=== PATIENT | male | born 1995 | race Caucasian/White ===

== ENCOUNTER 2018-11-13 03:43 | Inpatient (IN) | payer SELFPAY ==
[2018-11-13 03:57] LABS: Actual Bicarbonate (HCO3a) 12.4 mEq/L (22-28); Analyzer IN Cardio ER; Base Excess (BEa) -24.7 mEq/L (-2.0 to +3.0); Calcium, Ionized 1.14 mmol/L (1.12-1.30); Carboxyhemoglobin (COHb) 3.1 gm% (0.0-3.0); Hemoglobin (Hb) 13.4 g/dL (14.0-18.0); Potassium - ABG Lab 3.26 mmol/L (3.70-5.30)
[2018-11-13 04:02] LABS: CO2 Tension 96.3 mmHg (35.0-45.0); pH, Arterial 6.73 (7.35-7.45)
[2018-11-13] MEDS ORDERED: Norepinephrine 4 MG/4 ML VIAL ONE (04:02)
[2018-11-13 04:03] LABS: ALV-art Gradient 385.625 (0-20); Puncture Site RRA
[2018-11-13 04:15] LABS: Hemoglobin 13.1 g/dL (14.0-18.0); Mean Corpuscular HGB CONC 32.8 g/dL (32.0-36.0); Mean Corpuscular Hemoglobin 31.4 pg (27.0-31.0); Mean Corpuscular Volume 95.5 fL (78.0-98.0); Platelet Count 240 thou/uL (130-400); Red Blood Cell (RBC) Count 4.19 mill/uL (4.70-6.10); White Blood Cell (WBC) Count 9.8 thou/uL (4.8-10.8)
[2018-11-13 04:19] LABS: INR-International Normal Ratio 1.4; PTT 37.8 SEC (22.9-36.1); Prothrombin Time 17.4 SEC (12.0-14.7)
[2018-11-13 04:30] LABS: Eosinophils 6 % (0-10); Lymphocytes 81 % (21-51); MDiff Complete? YES; Monocytes 10 % (0-10); Neutrophil 3 % (42-75); Nucleated RBC 1 % (0)
[2018-11-13 04:33] LABS: ALT (SGPT) 390 U/L (8-55); AST (SGOT) 281 U/L (5-34); Alkaline Phosphatase 74 U/L (40-150); Anion Gap 30 mmol/L (10-20); BUN (Urea Nitrogen) 10 mg/dL (8.9-20.6); Bilirubin, Total 0.2 mg/dL (0.2-1.2); CK (CPK) 102 U/L (30-200); Calc. Creatinine Clearance 0 mL/min (70-130); Calcium 8.5 mg/dL (7.8-10.44); Chloride 107 mmol/L (98-107); Estimated GFR-MDRD 73; Globulin 2.1 g/dL (2.4-3.5); Glucose 276 mg/dL (70-105); Potassium 3.7 mmol/L (3.5-5.1); Protein, Total 5.1 g/dL (6.0-8.3); Sodium 142 mmol/L (136-145)
[2018-11-13 04:43] LABS: Carbon Dioxide 9 mmol/L (22-29)
[2018-11-13 04:54] LABS: Analyzer IN Cardio ER; Base Excess (BEa) -11.2 mEq/L (-2.0 to +3.0); CO2 Tension 46.2 mmHg (35.0-45.0); Carboxyhemoglobin (COHb) 1.8 gm% (0.0-3.0); Hemoglobin (Hb) 14.9 g/dL (14.0-18.0); O2 Tension (PaO2) 161.6 mmHg (80.0-100.0); Potassium - ABG Lab 4.51 mmol/L (3.70-5.30)
[2018-11-13 05:00] LABS: Puncture Site ALINE; pH, Arterial 7.18 (7.35-7.45)
[2018-11-13] MEDS ORDERED: Fentanyl 100 MCG/2 ML VIAL ONE (05:11)
[2018-11-13] MEDS ORDERED: Dextrose 5% in Water 1,000 ML IV PRN (05:35)
[2018-11-13] MEDS ORDERED: Ondansetron ODT 4 MG TAB PO PRN (05:35)
[2018-11-13] MEDS ORDERED: Ondansetron PF 4 MG/2 ML Vial IVP PRN (05:35)
[2018-11-13] MEDS ORDERED: Dextrose 50% Abboject 50 ML SYRINGE SLOW IVP PRN (05:35)
[2018-11-13] MEDS ORDERED: Ventilator Sedation Protocol 1 EACH FS SCH (05:35)
[2018-11-13] MEDS ORDERED: hydrALAZINE 20 MG/ML VIAL SLOW IVP PRN (05:35)
[2018-11-13] MEDS ORDERED: fentaNYL Citrate/PF 2,000 MCG in Sodium Chloride 0.9% 60 ML IV SCH (05:37)
[2018-11-13] MEDS ORDERED: Fentanyl BOLUS 250 ML IVPB PRN (05:37)
[2018-11-13] MEDS ORDERED: Lorazepam 2 MG/ML VIAL SLOW IVP PRN (05:37)
[2018-11-13] MEDS ORDERED: Propofol BOLUS 1,000 MG/100 ML VIAL IV PRN (05:37)
[2018-11-13] MEDS ORDERED: DISCONTINUE PREVIOUS NARCOTIC PAIN MEDICATIONS AND BENZODIAZEPINES FS SCH (05:37)
[2018-11-13] MEDS ORDERED: Morphine 2 MG/ML SYRINGE SLOW IVP PRN (05:37)
[2018-11-13] MEDS ORDERED: Propofol 1,000 MG/100 ML VIAL IV PRN (05:37)
[2018-11-13] MEDS ORDERED: Albuterol Sulfate 2.5 mg/0.5 ml Neb ONE (05:41)
[2018-11-13] MEDS ORDERED: Furosemide 40 MG/4 ML VIAL ONE (05:42)
[2018-11-13] MEDS: Sodium Chloride 0.9% 1,000 ML IV SCH ×2 (06:23→13:09)
[2018-11-13 06:31] LABS: Actual Bicarbonate (HCO3a) 19.2 mEq/L (22-28); CO2 Tension 59.7 mmHg (35.0-45.0); Calcium, Ionized 1.02 mmol/L (1.12-1.30); Carboxyhemoglobin (COHb) 0.9 gm% (0.0-3.0); Hemoglobin (Hb) 17.3 g/dL (14.0-18.0); Potassium - ABG Lab 3.95 mmol/L (3.70-5.30)
[2018-11-13 06:44] LABS: O2 Tension (PaO2) 51.9 mmHg (80.0-100.0); pH, Arterial 7.13 (7.35-7.45)
[2018-11-13 06:45] LABS: ALV-art Gradient 586.475 (0-20); Puncture Site LINE
--- NOTE | 2018-11-13 07:53 | CT ---
PRELIMINARY REPORT/[facility]/EMERGENCY AFTER HOURS PROCEDURE: EXAM: CT Head Without Contrast EXAM DATE/TIME: 11/13/2018 4:16 AM CLINICAL HISTORY: 23 years old, male; Injury or trauma; Initial encounter; Asphyxiation (suffocation); Consciousness no t specified; Patient HX: 23 y/o m presents to ED via EMS transport as cpr in progress, cardiac arrest. Per EMS, PT was found hanging by his neck by pd at 0300; Last seen awake at 0230. Pd called medics and began cpr on finding PT. PT in asystole en route; Cpr continued. 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 COMPARISON: No relevant prior studies available. FINDINGS: Limitations: Hardening artifacts. Brain: See Soft Tissues Finding. Ventricles: Normal. No ventriculomegaly. Bones/joints: Unremarkable. No acute fracture. Sinuses: There is mild mucosal thickening of the ethmoid sinuses. There are small air-fluid levels of left sphenoid, left maxillary sinuses. Mastoid air cells: Visualized mastoid air cells are well aerated. No mastoid effusion. Soft tissues: There is asymmetric decrease in size of the left temporal horn. There is subtle density of the left temporal lobe, image 10 of series 3. Cannot exclude subtle subarachnoid hemorrhage. IMPRESSION: 1. Asymmetric decrease size of the left temporal horn with subtle increased density and and could be related to volume averaging. Cannot exclude subtle subarachnoid hemorrhage of the left temporal lobe. followup. 2. Paranasal sinus disease. Thank you for allowing us to participate in the care of your patient. Dictated and Authenticated by: Sanjana Story DO 11/13/2018 4:49 AM Central Time ([place]) FINAL REPORT EMERGENCY AFTER HOURS CT HEAD: HISTORY: Asphyxiation. CPR in progress by EMS. Cardiac arrest. Patient found hanging by neck. COMPARISON: None. FINDINGS/IMPRESSION: 1. Beam-hardening artifact on multiple images limiting evaluation. No definitive intraparenchymal or extra-axial hemorrhage is identified, but there is mild asymmetric focus of increased density in the left temporal lobe felt to most likely be artifactual. Subarachnoid hemorrhage while possibility is thought less likely. Follow-up evaluation is suggested. 2. Sinus disease. This may be related to the intubation as endotracheal tube is imaged on the scrap piler i mage. Findings are agreement with the preliminary report by Tommie. CODE QA. Transcribed Date/Time: 11/13/2018 8:02 AM
--- NOTE | 2018-11-13 07:55 | RAD ---
XR Chest 1 View Portable History: Emergency exam Comparison: None. Findings: Endotracheal tube tip sits above the level of the clavicles. Defibrillator pads project ove r the right hemithorax and left hemithorax. Mild scattered atelectasis. No pneumothorax. No effusion. No enteric tube is appreciated. Impression: Scattered aspiration and atelectasis.
--- NOTE | 2018-11-13 08:00 | CT ---
PRELIMINARY REPORT/[facility]/EMERGENCY AFTER HOURS PROCEDURE: EXAM: CT Angiography Neck With Contrast EXAM DATE/TIME: 11/13/2018 4:16 AM CLINICAL HISTORY: 23 years old, male; Injury or trauma; Initial encounter; Asphyxiation; Patient HX: 23 y/o m presents to ED via EMS transport as cpr in progress, cardiac arrest. Per EMS, PT was found hanging by his neck by pd at 0300; Last seen awake at 0230. Pd called medics and began cpr on finding PT. PT in asystole en route; Cpr continued. PT given multiple rounds of epi en route, last 2 minutes well logging captain TECHNIQUE: Imaging protocol: Axial computed tomographic angiography images of the neck with intravenous contrast using CT angiography protocol. Coronal and sagittal reformatted images were created and reviewed. 3D rendering: MIP reconstructed images were created and reviewed. COMPARISON: No relevant prior studies available. FINDINGS: VASCULATURE: Right common carotid artery: Unremarkable. No stenosis. No dissection or occlusion. Right internal carotid artery: Unremarkable extracranial segment. No stenosis. No dissection or occlusion. Right external carotid artery: Unremarkable. No occlusion or stenosis of the origin. Right vertebral artery: Unremarkable. No stenosis. No dissection or occlusion. Left common carotid artery: Unremarkable. No stenosis. No dissection or occlusion. Left internal carotid artery: Unremarkable extracranial segment. No stenosis. No dissection or occlusion. Left external carotid artery: Unremarkable. No occlusion or stenosis of the origin. Left vertebral artery: Unremarkable. No stenosis. No dissection or occlusion. NECK: Bones/joints: No acute fracture. Soft tissues: Normal. No significant soft tissue swelling. Lungs: There are airspace consolidations of bilateral upper lobes posteriorly. There are also patchy opacities at apices. IMPRESSION: No hemodynamically significant stenosis or occlusion. COMMENT: Reference per NASCET criteria for degree of stenosis: Mild: less than 50% stenosis. Moderate: 50- 69% stenosis. Severe: 70-94% stenosis. Near occlusion: 95-99% stenosis. Thank you for allowing us to participate in the care of your patient. Dictated and Authenticated by: Sanjana Story DO 11/13/2018 5:02 AM Central Time ([place]) FINAL REPORT EMERGENCY AFTER HOURS CT ANGIOGRAM NECK WITH IV CONTRAST AND 3D RECONSTRUCTIONS: HISTORY: Asphyxiation.. CPR in progress by EMS. Cardiac arrest. Patient found hanging by neck by the police department. IMPRESSION: 1. Patent bilateral carotid arteries as well as patent bilateral vertebral arteries. No focal stenosi s or dissection is visualized. 2. Endotracheal tube noted in place with tip at the T1-2 level and well above the level of the palomo . 3. Nasogastric tube noted in place, the nasogastric tube is coiled within the patient's mouth. 4. Fluid in the posterior nasopharynx with air-fluid level in the left sphenoid sinus. These findings may be related to the intubation. 5. Parenchymal lung changes at the medial aspect visualized upper lung zones. Findings may be related to aspiration pneumonitis, pneumonia, and/or secondary to volume loss. 6. Findings are in agreement with the preliminary report by Tommie. CODE QA. Transcribed Date/Time: 11/13/2018 8:07 AM
--- NOTE | 2018-11-13 08:09 | CT ---
PRELIMINARY REPORT/[facility]/EMERGENCY AFTER HOURS PROCEDURE: EXAM: CT Cervical Spine Without Contrast EXAM DATE/TIME: 11/13/2018 4:16 AM CLINICAL HISTORY: 23 years old, male; Injury or trauma; Initial encounter; Asphyxiation; Patient HX: 23 y/o m presents to ED via EMS transport as cpr in progress, cardiac arrest. Per EMS, PT was found hanging by his neck by pd at 0300; Last seen awake at 0230. Pd called medics and began cpr on finding PT. PT in asystole en route; Cpr continued. 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 Coronal and sagi ttal reformatted images were created and reviewed. COMPARISON: No relevant prior studies available. FINDINGS: Vertebrae: No acute fracture. Normal alignment. Discs/Spinal canal/Neural foramina: No spinal stenosis. No neural foraminal narrowing. Soft tissues: Unremarkable. Lungs: Lung apices are normal. IMPRESSION: No acute findings. Thank you for allowing us to participate in the care of your patient. Dictated and Authenticated by: Sanjana Story DO 11/13/2018 4:53 AM Central Time ([place]) FINAL REPORT EMERGENCY AFTER HOURS CT CERVICAL SPINE WITHOUT CONTRAST: FINDINGS/IMPRESSION: I agree with the findings and impression given in the preliminary report per [facility] physician. No evide nce of acute osseous abnormality of the cervical spine. POS: CET
--- NOTE | 2018-11-13 08:18 | RAD ---
SINGLE VIEW CHEST: Date: 11/13/18 COMPARISON: 11/13/18 at 0345 hours. HISTORY: Cardiac arrest. Trauma. FINDINGS: Single view of the chest shows a normal sized cardiomediastinal silhouette. There are bilateral perih ilar opacities which extend into the upper lobes. A NG tube is seen with its tip in the stomach. An e ndotracheal tube is seen with its tip at the upper border of the clavicles. No pleural effusion is se en. IMPRESSION: Bilateral perihilar opacities may represent pulmonary edema. POS: CET
[2018-11-13 08:20] LABS: Lactic Acid 5.2 mmol/L (0.5-2.2)
[2018-11-13] MEDS ORDERED: Famotidine/PF 20 mg/2ml Vial SLOW IVP SCH (09:00)
[2018-11-13] MEDS ORDERED: Albumin 5% 250 ML ONE (09:07)
[2018-11-13] MEDS ORDERED: Sodium Bicarb 50 MEQ/50 ML VIAL ONE ×2 (09:23→17:20)
--- NOTE | 2018-11-13 09:28 | HP ---
REQUESTING PHYSICIAN: Dr. Gamez. ATTENDING SURGEON: Dr. Delgadillo. HISTORY OF PRESENT ILLNESS: The patient is a 23-year-old man who was brought to the emergency department after he was found hanging, totally unresponsive, and had bystander CPR initiated. The patient was thought to be possibly hanging as long as 30 minutes prior to arrival of first press operator. The patient was brought to the emergency department in full cardiac arrest with CPR being performed. He was intubated after several rounds of cardiac medications and CPR, the patient had a return of circulation. The patient was met in the emergency department by Dr. Delgadillo in addition to the resuscitation crew. The patient was a GCS of 3 during his entire resuscitation in the emergency department. At one point, the patient required Levophed drip to maintain his pressure. He also just prior to leaving for the critical care unit, desatted into the 80s. The patient's ET tube was suctioned. He also had albuterol nebulizer treatment, and repeat chest x-ray showed some pulmonary congestion, possibly related to flash pulmonary edema; at which time, he was given 40 mg of Lasix IV. The patient at no point had received any paralytics and only received one dose of 100 mcg of fentanyl. The patient was a Otf Pizano during his initial arrival at the emergency department. ALLERGIES: UNKNOWN. CURRENT MEDICATIONS: Unknown. PAST MEDICAL HISTORY: Unknown. PAST SURGICAL HISTORY: Unknown. SOCIAL HISTORY: Unknown. REVIEW OF SYSTEMS: 10-point review of systems unknown. PHYSICAL EXAMINATION: VITAL SIGNS: Initial vitals; blood pressure was 62/36, heart rate was approximately 120 with CPR. Respirations were bag valve mask through the ET tube, a rate of 20, oxygen saturation was 96%. GENERAL: The patient initially had a [place] Coma Scale of 3. This would not change throughout the resuscitation. After return of circulation, the patient remained [place] Coma Scale of 3. HEENT: Head is normocephalic and atraumatic. Eyes, pupils are fixed and dilated at approximately 6 mm. Ears are atraumatic without discharge. Nose was atraumatic without discharge. Oropharynx, an ET tube was in place. Orogastric tube had been placed in the emergency department. NECK: There were no step-offs to the midline posterior. Anterior neck did show a ligature leda across his anterior neck. The trachea is midline. CHEST: Scattered rhonchi bilaterally. HEART: Tachycardic with a regular rhythm. ABDOMEN: Soft. Slightly distended with absent bowel sounds. PELVIS: Stable. EXTREMITIES: While on pressors, he showed a cap refill of 3 to 4 seconds and 1+ to 2+ pulses. BACK: Atraumatic. LABORATORY FINDINGS: White blood cell count 9.8, hemoglobin 13.1, hematocrit 40.0, and platelets 240. Sodium 142, potassium 3.7, chloride 107, CO2 of 9, BUN 10, creatinine 1.22, and glucose 276. Initial lactic acid was 13.7, repeat was 5.2. Total bilirubin 0.2, AST 281, ALT 390, alkaline phosphatase 74, CK 102, troponin 0.021. Initial blood gas; the pH of 6.73, pCO2 of 96, PO2 of 207, base excess was -24.7. RADIOGRAPHIC FINDINGS: CT of the head without contrast shows asymmetric decreased size of the left temporal horn with subtle increased density, and this could be related to volume averaging. Cannot exclude subtle subarachnoid hemorrhage of the left temporal lobe. CT of the C-spine without contrast shows no acute findings. CT of the neck with IV contrast shows no hemodynamically significant stenosis or occlusion. ASSESSMENT: 1. Status post hanging. 2. Status post CPR with return of circulation. 3. Acute respiratory failure, secondary to above. PLAN: Plan will be to admit the patient to the critical care unit. We will continue resuscitative efforts to include pressors as needed. At the time of this dictation, the patient had been off his vasopressors for approximately an hour, but then required them once again. The patient's oxygen saturation has been also varying, but at the time of this dictation, had returned into the 90s. The outcome for this patient does look grim. We will continue supportive care and await family arrival. The evaluation and examination of resuscitation were done in the emergency department with Dr. Delgadillo. The case was also discussed with Dr. Oates prior to this dictation. Job ID: [id number]
[2018-11-13] MEDS ORDERED: Dextrose 50% Abboject 50 ML SYRINGE SLOW IVP SCH (09:30)
[2018-11-13] MEDS ORDERED: methylPREDNISolone Sod Succ 2 GM in Sodium Chloride 0.9% 100 ML IVPB SCH (09:30)
[2018-11-13] MEDS ORDERED: Insulin Regular 300 UNITS/3 ML VIAL IVP SCH (09:30)
[2018-11-13] MEDS ORDERED: Sodium Chloride 0.9% (PF) 10 ML VIAL FS PRN (09:54)
[2018-11-13] MEDS ORDERED: Pantoprazole 40 MG VIAL IVP SCH (10:00)
--- NOTE | 2018-11-13 10:04 | RAD ---
XR Chest 1 View Portable History: Central line placement Comparison: Radiograph same day Findings: Small right apical pneumothorax. Central venous catheter tip at the mid SVC in good positio n. The right pneumothorax is have a basilar component. Parenchymal opacities are similar. Impression: New small-moderate right apical and basilar pneumothorax and likely a component of pneumo mediastinum.
[2018-11-13] MEDS: Levothyroxine Sodium 400 MCG in Sodium Chloride 0.9% 100 ML IVPB SCH (10:19)
[2018-11-13 12:22] LABS: Actual Bicarbonate (HCO3a) 17.7 mEq/L (22-28); Base Excess (BEa) -9.4 mEq/L (-2.0 to +3.0); CO2 Tension 42.9 mmHg (35.0-45.0); Calcium, Ionized 1.01 mmol/L (1.12-1.30); Carboxyhemoglobin (COHb) 0.9 gm% (0.0-3.0); Hemoglobin (Hb) 15.1 g/dL (14.0-18.0); O2 Tension (PaO2) 97.8 mmHg (80.0-100.0); Potassium - ABG Lab 3.25 mmol/L (3.70-5.30)
[2018-11-13 12:24] LABS: ALV-art Gradient 561.575 (0-20); Puncture Site LINE; pH, Arterial 7.23 (7.35-7.45)
[2018-11-13] MEDS ORDERED: Sodium Bicarb 50 MEQ/50 ML VIAL IVP SCH ×2 (12:30→17:30)
[2018-11-13] MEDS ORDERED: Calcium Chloride 1 GM/10 ML Abboject SYRINGE IVP SCH (12:30)
[2018-11-13] MEDS ORDERED: Lactated Ringer's 1,000 ML IV SCH (13:15)
[2018-11-13 13:44] LABS: Anion Gap 12 mmol/L (10-20); BUN (Urea Nitrogen) 23 mg/dL (8.9-20.6); Calc. Creatinine Clearance 52 mL/min (70-130); Calcium 9.7 mg/dL (7.8-10.44); Carbon Dioxide 27 mmol/L (22-29); Chloride 113 mmol/L (98-107); Estimated GFR-MDRD 33; Glucose 40 mg/dL (70-105); Magnesium 1.7 mg/dL (1.6-2.6); Phosphorus Less than 1.0 mg/dL (2.3-4.7); Potassium 3.5 mmol/L (3.5-5.1); Sodium 148 mmol/L (136-145)
[2018-11-13] MEDS ORDERED: Potassium Phosphate 30 MMOL, Magnesium Sulfate 4 GM in Sodium Chloride 0.9% 250 ML 250 ML IVPB SCH (14:00)
[2018-11-13] MEDS ORDERED: Magnesium Sulfate 4 GM in Sodium Chloride 0.9% 250 ML 250 ML IVPB SCH (14:00)
[2018-11-13] MEDS ORDERED: Potassium Phosphate 30 MMOL in Sodium Chloride 0.9% 500 ML IVPB SCH (14:00)
[2018-11-13] MEDS ORDERED: Lidocaine 1% (PF) 30 ML VIAL ONE (14:20)
[2018-11-13] MEDS ORDERED: ISOVUE-370 76%-LOCM 1 ML ONE (15:24)
[2018-11-13] MEDS: Norepinephrine 8 MG in Dextrose 5% in Water 242 ML IVPB PRN ×2 (15:56→21:17)
[2018-11-13 16:54] LABS: Actual Bicarbonate (HCO3a) 24.1 mEq/L (22-28); Carboxyhemoglobin (COHb) 0.6 gm% (0.0-3.0); Hemoglobin (Hb) 15.5 g/dL (14.0-18.0); O2 Tension (PaO2) 92.8 mmHg (80.0-100.0); Potassium - ABG Lab 3.52 mmol/L (3.70-5.30)
[2018-11-13 16:56] LABS: pH, Arterial 7.17 (7.35-7.45)
[2018-11-13 16:57] LABS: CO2 Tension 68.1 mmHg (35.0-45.0); Puncture Site ALINE
[2018-11-13 16:58] LABS: ALV-art Gradient 535.075 (0-20)
[2018-11-13] MEDS: Lactated Ringer's 1,000 ML IV SCH (17:28)
[2018-11-13 17:35] LABS: Actual Bicarbonate (HCO3a) 23.6 mEq/L (22-28); Base Excess (BEa) -2.6 mEq/L (-2.0 to +3.0); CO2 Tension 46.2 mmHg (35.0-45.0); Calcium, Ionized 1.12 mmol/L (1.12-1.30); Potassium - ABG Lab 3.51 mmol/L (3.70-5.30); pH, Arterial 7.33 (7.35-7.45)
[2018-11-13 17:37] LABS: Carboxyhemoglobin (COHb) 0.9 gm% (0.0-3.0); Puncture Site ALINE
--- NOTE | 2018-11-13 18:15 | OP ---
DATE OF PROCEDURE: 11/13/2018 PREOPERATIVE DIAGNOSES: 1. Suicide attempt by hanging. 2. Acute posttraumatic respiratory failure. 3. Acute severe anoxic brain injury. 4. Acute metabolic and respiratory acidosis. POSTOPERATIVE DIAGNOSES: 1. Suicide attempt by hanging. 2. Acute posttraumatic respiratory failure. 3. Acute severe anoxic brain injury. 4. Acute metabolic and respiratory acidosis. PROCEDURE PERFORMED: Placement of triple-lumen left subclavian central venous catheter. INDICATIONS FOR PROCEDURE: A 23-year-old man, attempted suicide today by hanging. Apparently, the patient was cut down after over 25 minutes of hanging time. He was essentially in asystole for 30 minutes. Following a prolonged CPR, return of spontaneous circulation was achieved. The patient is admitted in the intensive care unit currently. He has no brainstem function. He has been hemodynamically unstable, requiring large volume fluid resuscitation and high dose of norepinephrine. Decision was made to place a central venous catheter for hemodynamic monitoring and to facilitate further therapeutics. DESCRIPTION OF PROCEDURE: The patient was placed in supine position. Left chest wall was sterilely prepped and draped in usual fashion. The skin below the left clavicle anesthetized with 1% lidocaine. Left subclavian vein was cannulated with an 18-gauge introducer needle, returning dark venous blood. Guidewire was passed through the needle and advanced into the left subclavian vein without resistance. Needle was withdrawn over the guidewire. A stab incision was made adjacent to the guidewire using 11 scalpel. Dilator was passed over the guidewire, dilating the subcutaneous tissues. Dilator was removed and a triple-lumen central venous catheter was advanced over the guidewire and placed in the left subclavian vein without resistance, stopping at the 18 cm leda. Guidewire was removed. Dark venous blood was aspirated from all three ports, which were individually flushed with saline. Catheter was secured to anterior chest wall using 3-0 silk suture at two points. Biopatch and sterile dressings were applied. Portable chest x-ray was obtained confirming proper placement of the central venous catheter, no pneumothorax present. Job ID: [id number]
--- NOTE | 2018-11-13 18:22 | PRG ---
DATE OF SERVICE: SUBJECTIVE: Mr. Gonzalez is a 23-year-old man who attempted suicide by hanging. The patient was cut down over 20 minutes of hanging time. He was in asystole for over 30 minutes. Following a prolonged CPR, spontaneous circulation was achieved. The patient was transferred to [facility] and evaluated by Trauma team. CT scan of the brain was obtained which reveals no acute intracranial hemorrhage. CT angiography of the neck revealed no vascular pathology. CT scan of the cervical spine revealed no fractures or dislocation. The patient has remained hemodynamically unstable. He has required ongoing fluid resuscitation. Currently, norepinephrine is at 20 mcg/minute. This is only achieving a mean arterial pressure in the mid 60s. Urinary output, however, has been adequate. OBJECTIVE: VITAL SIGNS: Include blood pressure 91/53, pulse 121, respiratory rate is 28, temperature is 103.1 degrees Fahrenheit, oxygen saturation 100% on FiO2 100%. HEENT: Both pupils are fixed and dilated at 5 mm bilaterally. The patient has no corneal reflex present. He has no cough or gag reflexes. HEART: Reveals regular rate with sinus tachycardia. No murmurs or gallops auscultated. LUNGS: Reveal bibasilar rhonchi. Breathing regular and nonlabored. ABDOMEN: Soft and nondistended. EXTREMITIES: Reveal 2+ radial and pedal pulses bilaterally. No ankle edema is present. [place] Coma Scale is 3. LABORATORY FINDINGS: Today includes CBC with 9800 white blood cells, hemoglobin and hematocrit 13.1 and 40.0 respectively, platelet count is 240,000. Metabolic profile; sodium is 142, potassium 3.7, chloride is 107, bicarb is 9, anion gap is 30, BUN is 10, creatinine is 1.22, glucose is 276. Lactic acid which was initially 13.7, is now down to 5.2. AST and ALT elevated at 281 and 390 respectively. Total bilirubin is normal at 0.2. Arterial blood gas: PH 7.13, pCO2 is 60, pO2 is 52, oxygen saturation 74%, base excess -11.0, hemoglobin is 17.3, hematocrit 51.0. Ionized calcium is 1.02. IMPRESSIONS: 1. Status post suicide by hanging. 2. Acute anoxic brain injury with brain in evolution. 3. Acute posttraumatic hypercapnic and hypoxemic respiratory failure. 4. Acute lactic acidosis. 5. Acute hypocalcemia. 6. Acute negative pressure bilateral pulmonary edema. PLAN: 1. Aggressive fluid resuscitation. 2. We will initiate T4 brain protocol. 3. Correct abnormal electrolytes. 4. We will continue with full mechanical ventilator support with high PEEP until hypoxemia is reversed. 5. Above findings and plan discussed with the patient's father once he arrived. 6. I have informed him that prognosis for any meaningful recovery is poor as the patient is approaching brain . Dad indicates understanding information given. We will wait for arrival of his mother. Total critical care time is 75 minutes. Job ID: [id number]
[2018-11-13] MEDS: Vasopressin 40 UNIT, Admixture Fee 1 EACH in Sodium Chloride 0.9% 100 ML IV SCH (21:07)
--- NOTE | 2018-11-14 00:30 | PRG ---
DATE OF SERVICE: 11/13/2018 SUBJECTIVE: The patient remains in the Critical Care Unit. He was admitted early this morning status post a hanging in which he sustained significant anoxic brain injury. He had an estimated 50 minutes of pulselessness return of pulse, the patient has had no sedation or paralytics, other than initially has made no efforts to breath spontaneously or have any reflexes. The patient's pupils remained fixed and dilated. This evening I met with both mother and father and discussed the prognosis and the severity of his injury, they understood this. They did want the patient to remain a full code overnight and once we do his nuclear medicine brain flow study in the morning, will make decisions after that. The Day Team has initiated the T4 brain protocol and the remainder of his supportive care continues. OBJECTIVE: VITAL SIGNS: The patient continues to be febrile, we are instituting cooling blanket, tachycardia between the 90s and 120s and blood pressures the mean arterial pressure with vasopressor support has remained above 60. GENERAL: The patient is resting in bed. He appears in no discomfort. He has on full ventilatory support during my lengthy stay with the patient. I did not notice any spontaneous respirations on the ventilator. His pupils remained fixed and dilated. His [place] Coma Scale remains 3T. LUNGS: Scant wheezing bilaterally. ABDOMEN: Bowel sounds are hypoactive. ASSESSMENT/PLAN: 1. Status post hanging. 2. Acute anoxic brain injury with brain in evolution. 3. Acute posttraumatic hypercapnia and hypoxemia, respiratory failure. 4. Acute lactic acidosis. 5. Acute hypocalcemia. 6. Acute negative pressure bilateral pulmonary edema. PLAN: Will be to continue full supportive measures and evaluate his brain flow study in the morning and then discuss with the family plans at that time. The dad informed us that the patient is a blood donor and we noted the STA has been notified, but has not made contact with the patient's family at this time. Again, the discussion was done with the parents who were both at bedside and they are both in agreement with this plan at this time. Job ID: [id number]
[2018-11-14 03:39] LABS: INR-International Normal Ratio 2.7; PTT 45.9 SEC (22.9-36.1); Prothrombin Time 28.5 SEC (12.0-14.7)
[2018-11-14 03:41] LABS: Hemoglobin 14.8 g/dL (14.0-18.0); Mean Corpuscular HGB CONC 33.6 g/dL (32.0-36.0); Mean Corpuscular Hemoglobin 30.9 pg (27.0-31.0); Mean Corpuscular Volume 91.8 fL (78.0-98.0); Mean Platelet Volume 10.4 fL (7.4-10.4); Platelet Count 61 thou/uL (130-400); RBC Distribution Width 13.8 % (11.5-14.5); White Blood Cell (WBC) Count 12.4 thou/uL (4.8-10.8)
[2018-11-14 03:49] LABS: Anion Gap 22 mmol/L (10-20); BUN (Urea Nitrogen) 39 mg/dL (8.9-20.6); Calc. Creatinine Clearance 36 mL/min (70-130); Calcium 8.3 mg/dL (7.8-10.44); Carbon Dioxide 18 mmol/L (22-29); Chloride 114 mmol/L (98-107); Estimated GFR-MDRD 22; Glucose 153 mg/dL (70-105); Potassium 3.2 mmol/L (3.5-5.1); Sodium 151 mmol/L (136-145)
[2018-11-14 04:00] LABS: Band 36 % (5-11); Lymphocytes 27 % (21-51); MDiff Complete? YES; Metamyelocyte 4 % (0-0); Monocytes 4 % (0-10); Neutrophil 29 % (42-75); Platelet Morphology Comment Appears Decreased
[2018-11-14] MEDS ORDERED: D5 1/2 NS w/20 mEq KCL 1,000 ML IV SCH (04:15)
[2018-11-14] MEDS: Lactated Ringer's 1,000 ML IV SCH (04:21)
[2018-11-14 04:49] LABS: ALT (SGPT) 3121 U/L (8-55); AST (SGOT) 3235 U/L (5-34); Albumin 3.9 g/dL (3.5-5.0); Alkaline Phosphatase 53 U/L (40-150); Bilirubin, Direct 1.4 mg/dL (0.1-0.3); Bilirubin, Total 1.9 mg/dL (0.2-1.2); Magnesium 2.6 mg/dL (1.6-2.6); Phosphorus 4.6 mg/dL (2.3-4.7); Protein, Total 5.5 g/dL (6.0-8.3)
[2018-11-14] MEDS ORDERED: Potassium Chloride 20 MEQ in Premix Bag 1 BAG IVPB SCH (05:00)
[2018-11-14 06:45] LABS: Actual Bicarbonate (HCO3a) 15.7 mEq/L (22-28); Base Excess (BEa) -10.8 mEq/L (-2.0 to +3.0); CO2 Tension 37.4 mmHg (35.0-45.0); Calcium, Ionized 1.04 mmol/L (1.12-1.30); Carboxyhemoglobin (COHb) 0.4 gm% (0.0-3.0); Hemoglobin (Hb) 14.6 g/dL (14.0-18.0); O2 Tension (PaO2) 235.5 mmHg (80.0-100.0)
[2018-11-14 06:48] LABS: Puncture Site LINE; pH, Arterial 7.24 (7.35-7.45)
[2018-11-14] MEDS ORDERED: Sodium Bicarb 50 MEQ/50 ML VIAL IVP SCH (07:00)
[2018-11-14] MEDS ORDERED: Pantoprazole 40 MG VIAL IVP SCH (09:00)
--- NOTE | 2018-11-14 09:04 | HP ---
ADDENDUM: CHIEF COMPLAINT: Hanging. HISTORY OF PRESENT ILLNESS: This is an addendum to the H and P dictated by Vincent Jernigan trauma PA. For full details, please see his report. In summary, the patient was brought to the emergency room after being found hanging and unresponsive by policemen around 3:00 a.m. His last known contact was about 2:30 a.m. After cutting him down, the police began bystander CPR, which was continued en route by the EMS crew. I was present on his arrival. He was intubated with equal breath sounds and dilated, nonresponsive pupils. He did have a palpable femoral and carotid pulses, though chest compressions were halted and his tracing showed wide-complex tachycardia. He was shocked and converted to narrow complex tachycardia with preservation of pulse. He was hemodynamically labile during his time in the emergency room and was extremely acidotic on his first ABG. He received several doses of epinephrine and bicarb and was on a Levophed drip to maintain his pressure. His O2 saturations were generally good, although he did desaturate at one point into the 80s and was found to have evidence of pulmonary edema on chest x-ray, which was treated with Lasix. His past medical, surgical, and family history were unknown on his arrival as he was reported to be from [place] and no family was present. He had no known allergies or medications. REVIEW OF SYSTEMS: Unobtainable. PHYSICAL EXAMINATION: Complete physical examination was performed. GENERAL: He had some abrasions to the anterior neck, mostly on the left, consistent with history of hanging. No petechiae or plethora. No step-offs or crepitus. Pupils were fixed and dilated. He did have some agonal respirations. No obvious external signs of trauma. HEART: Tachycardic, but regular. LUNGS: Sounds were equal bilaterally. ABDOMEN: Soft and nondistended. No instability or deformity of his pelvis, chest, or extremities. LABORATORY DATA: Initial labs showed a severe acidosis. The pH is 6.7, pCO2 of 96, and PO2 of 207, this did improve to pH 7.18, pCO2 of 46, PO2 of 161 during his ER stay. INR was 1.4 and PTT was 37. White count 9.8, hematocrit 40, and platelets 240. Electrolytes with severe acidosis. Elevation of AST and ALT, likely due to shock liver. Lactate was very elevated at 13.7, initially, but troponin was normal. IMAGING STUDIES: CT of the head was fairly unremarkable, although there was some subtle increased density in the left temporal horn subarachnoid hemorrhage could not be completely excluded. CT of the spine showed no acute findings and CTA of the neck was also unremarkable. The patient did not show any purposeful movement or response to pain during his ER stay. A left radial art line was placed due to hemodynamic instability and need for pressors. The left wrist was placed in gentle extension, prepped with ChloraPrep. An arrow radial art line was placed by palpation and secured to the skin with sutures and art line pressures corresponded with noninvasive cuff pressures. This was sterilely dressed with Tegaderm. Approximately 60 minutes of critical care exclusive of procedures was spent on the patient's initial evaluation and resuscitation. He is being admitted to the trauma service in the ICU on the ventilator for ongoing resuscitation and care. Job ID: [id number]
[2018-11-14] MEDS: Sodium Bicarbonate 100 MEQ in Dextrose 5% in Water 1,000 ML IV SCH ×3 (09:09→20:40)
[2018-11-14] MEDS: Pantoprazole 40 MG VIAL IVP SCH ×2 (09:09→20:41)
--- NOTE | 2018-11-14 09:51 | NM ---
RADIONUCLIDE CEREBRAL PERFUSION SCAN: HISTORY: Hanging RADIOPHARMACEUTICAL: 30 mCi technetium 99m HMPAO injected intravenously FINDINGS: There is flow to the brain with the uptake in the supratentorial and infratentorial portions. IMPRESSION: Preserved brain perfusion.
[2018-11-14] MEDS ORDERED: Sodium Bicarb 50 MEQ/50 ML Abboject 8.4% SYRINGE ONE (11:11)
[2018-11-14] MEDS ORDERED: EPINEPHrine 1 MG/10 ML Abboject SYRINGE ONE (11:11)
[2018-11-14] MEDS: Vasopressin 40 UNIT, Admixture Fee 1 EACH in Sodium Chloride 0.9% 100 ML IV SCH (11:48)
[2018-11-14 13:41] VITALS: BMI 25.2
[2018-11-14 15:31] LABS: Anion Gap 19 mmol/L (10-20); BUN (Urea Nitrogen) 53 mg/dL (8.9-20.6); Calc. Creatinine Clearance 32 mL/min (70-130); Calcium 7.3 mg/dL (7.8-10.44); Carbon Dioxide 24 mmol/L (22-29); Chloride 109 mmol/L (98-107); Estimated GFR-MDRD 19; Glucose 245 mg/dL (70-105); Magnesium 2.3 mg/dL (1.6-2.6); Phosphorus 4.6 mg/dL (2.3-4.7); Potassium 4.1 mmol/L (3.5-5.1); Sodium 148 mmol/L (136-145)
[2018-11-14 15:52] LABS: Amphetamine Not Detected (NotDetected); Barbiturates Screen Not Detected (NotDetected); Benzodiazepine Screen Not Detected (NotDetected); Cocaine Metabolite Screen Not Detected (NotDetected); Medtox Control Line Valid? VALID (VALID); Medtox Reader # READER 4; Methadone Not Detected (NotDetected); Methamphetamine Not Detected (NotDetected); Opiate Screen Not Detected (NotDetected); Oxycodone Screen Not Detected (NotDetected); Phencyclidine (PCP) Not Detected (NotDetected); THC/Cannabinoid Screen Detected (NotDetected); Tricyclic Screen Not Detected (NotDetected)
[2018-11-14 16:00] LABS: CK (CPK) 19178 U/L (30-200)
[2018-11-14] MEDS ORDERED: Sodium Chloride 0.45% 1,000 ML IV SCH (17:00)
--- NOTE | 2018-11-14 17:30 | PRG ---
DATE OF SERVICE: 11/14/2018 SUBJECTIVE: Mr. Gonzalez is a 23-year-old man, who committed suicide yesterday by hanging. The patient sustained posttraumatic acute cardiac arrest. He remains on mechanical ventilator support. He was previously on high dose norepinephrine to maintain blood pressure, but that has been weaned off overnight. Currently on vasopressin at 2.4 units/hour. Urinary output has been adequate for this patient's weight. He remains with a [place] Coma scale of 3. He has no corneal, gag or cough reflexes. Pupils remained fixed and dilated at 6 mm bilaterally. OBJECTIVE: VITAL SIGNS: This morning includes blood pressure 136/61, pulse 110, respiratory rate 17, temperature is 100.6 degrees Fahrenheit, oxygen saturation 100% on FiO2 of 60%. HEART: Reveals regular rate with sinus tachycardia. No murmurs or gallops auscultated. LUNGS: Clear to auscultation bilaterally. Breathing, regular and nonlabored. ABDOMEN: Soft and nondistended. Bowel sounds normoactive in all 4 quadrants. EXTREMITIES: Reveal 2+ radial and pedal pulses bilaterally. No ankle edema is present. LABORATORY FINDINGS: Today include a CBC with 12,400 white blood cells, hemoglobin and hematocrit are 14.8 and 44.1 respectively. The platelet count is 61,000. Metabolic profile; sodium 148, potassium 4.1, chloride is 109, bicarb is 24, BUN is 53, creatinine is 3.97, glucose 245, phosphorus is 4.6, magnesium 2.3, AST and ALT are 3235 and 3121 respectively. Total bilirubin is 1.9. Creatine kinase is 19,178. IMPRESSION: 1. Post injury day #1, status post suicide by hanging. 2. Acute post traumatic respiratory failure. 3. Status post acute posttraumatic cardiac arrest. 4. Acute kidney injury with worsening renal failure, likely acute tubular necrosis secondary to acute cardiogenic shock. 5. Acute ischemic hepatitis. 6. Acute rhabdomyolysis. 7. Acute hyperglycemia. PLAN: 1. Continue with fluid resuscitation. Monitor urinary output as endpoint. 2. Correct abnormal electrolytes. 3. Continue with full mechanical ventilator support and wean ventilator support as tolerated. Currently, the patient is over-breathing the ventilator, therefore, apnea test will be deferred. 4. A brain flow study which was obtained this morning, reveals adequate brain flow. I discuss with the patient's family including both parents and extended family. 5. I did inform them that the patient clearly has anoxic brain injury which is likely non-reversible. 6. He has lost several brainstem functions. 7. Brain is evolving. 8. We will continue with serial physical and neurological examination and consider an apnea test once the patient has shown signs of apnea. 9. If a positive apnea test is obtained, we will consider confirmatory repeat brain flow study at that time. Above findings and plan discussed with the patient's family, who indicated understanding of information given. I have answered their questions. Total critical care time is 45 minutes. Job ID: [id number]
[2018-11-14 17:35] LABS: Phosphorus 5.3 mg/dL (2.3-4.7)
[2018-11-14] MEDS: Levothyroxine Sodium 400 MCG in Sodium Chloride 0.9% 100 ML IVPB SCH (18:14)
[2018-11-14] MEDS: Sodium Chloride 0.9% (PF) 10 ML VIAL FS PRN (20:41)
--- NOTE | 2018-11-15 01:30 | PRG ---
DATE OF SERVICE: 11/15/2018 SUBJECTIVE: The patient remains in the critical care unit. He is status post suicide by hanging. The patient has suffered what appeared to a definite anoxic brain injury. He reportedly had brain flow study this morning, that showed adequate flow, but he has not been overbreathing the ventilator since this morning. Of note, last night while I have the patient, I did not note this. He continues to have no sedation and absent reflexes. The patient is currently off all pressure support and doing well considering from that standpoint and currently is making adequate urine, though it has been slowing down consistent with his worsening kidney injury. PHYSICAL EXAMINATION: VITAL SIGNS: The patient is maintaining a MAP of above 70, again without any vasopressors, continued tachycardia and ventilatory support. The patient's temperature is in the 90s, this is on cooling blanket. HEENT: Pupils remained fixed and dilated. LUNGS: Clear to auscultation bilaterally. ABDOMEN: Soft and nondistended with hypoactive bowel sounds. ASSESSMENT/PLAN: 1. Status post suicide by hanging. 2. Acute posttraumatic respiratory failure. 3. Status post acute posttraumatic cardiac arrest. 4. Acute kidney injury with worsening renal failure. 5. Acute ischemic hepatitis. 6. Acute rhabdomyolysis. 7. Acute hyperglycemia. Plan will be to continue full supportive care and serial exam. Day Team has corrected his electrolytes. He will obviously maintain ventilatory support and discussion will be made in the morning after his exam possibility of doing apnea test and progressing from there. Job ID: [id number]
[2018-11-15 04:50] LABS: Hemoglobin 11.3 g/dL (14.0-18.0); Mean Corpuscular HGB CONC 34.1 g/dL (32.0-36.0); Mean Corpuscular Hemoglobin 31.1 pg (27.0-31.0); Mean Corpuscular Volume 91.2 fL (78.0-98.0); Mean Platelet Volume 10.2 fL (7.4-10.4); Platelet Count 25 thou/uL (130-400); RBC Distribution Width 13.8 % (11.5-14.5); Red Blood Cell (RBC) Count 3.62 mill/uL (4.70-6.10); White Blood Cell (WBC) Count 6.8 thou/uL (4.8-10.8)
[2018-11-15 05:01] LABS: Band 33 % (5-11); Elliptocytes SLIGHT = 2-5 cells (100X) (0-1/hpf); Lymphocytes 10 % (21-51); MDiff Complete? YES; Metamyelocyte 8 % (0-0); Monocytes 20 % (0-10); Neutrophil 29 % (42-75); Platelet Morphology Comment Appears Decreased
[2018-11-15] MEDS: Sodium Bicarbonate 100 MEQ in Dextrose 5% in Water 1,000 ML IV SCH ×2 (05:04→09:26)
[2018-11-15 05:16] LABS: ALT (SGPT) 1940 U/L (8-55); AST (SGOT) 1225 U/L (5-34); Albumin 3.3 g/dL (3.5-5.0); Alkaline Phosphatase 36 U/L (40-150); Anion Gap 17 mmol/L (10-20); BUN (Urea Nitrogen) 64 mg/dL (8.9-20.6); Bilirubin, Total 2.4 mg/dL (0.2-1.2); Calc. Creatinine Clearance 27 mL/min (70-130); Calcium 6.6 mg/dL (7.8-10.44); Carbon Dioxide 27 mmol/L (22-29); Chloride 102 mmol/L (98-107); Estimated GFR-MDRD 15; Globulin 1.8 g/dL (2.4-3.5); Glucose 296 mg/dL (70-105); Magnesium 2.1 mg/dL (1.6-2.6); Potassium 4.4 mmol/L (3.5-5.1); Protein, Total 5.1 g/dL (6.0-8.3); Sodium 142 mmol/L (136-145)
[2018-11-15 05:37] LABS: CK (CPK) 16917 U/L (30-200)
[2018-11-15 07:53] VITALS: TEMP 98.3
--- NOTE | 2018-11-15 08:03 | RAD ---
EXAM: Single view of the chest HISTORY: Respiratory failure COMPARISON: 11/13/2018 FINDINGS: Single view of the chest shows a normal sized cardiomediastinal silhouette. Lines and tube s are unchanged in position. There is a new right chest tube without evidence of pneumothorax. The bilateral perihilar opacities have improved. IMPRESSION: 1. Interval placement of right chest tube without evidence of pneumothorax. 2. Improvement in perihilar opacities
[2018-11-15 08:49] LABS: Actual Bicarbonate (HCO3a) 28.1 mEq/L (22-28); Base Excess (BEa) 2.9 mEq/L (-2.0 to +3.0); CO2 Tension 45.8 mmHg (35.0-45.0); Calcium, Ionized 0.82 mmol/L (1.12-1.30); Carboxyhemoglobin (COHb) 0.6 gm% (0.0-3.0); Hemoglobin (Hb) 11.2 g/dL (14.0-18.0); O2 Tension (PaO2) 218.4 mmHg (80.0-100.0); Potassium - ABG Lab 3.62 mmol/L (3.70-5.30); pH, Arterial 7.41 (7.35-7.45)
[2018-11-15] MEDS: Pantoprazole 40 MG VIAL IVP SCH (08:49)
[2018-11-15] MEDS: Sodium Chloride 0.9% (PF) 10 ML VIAL FS PRN (08:49)
[2018-11-15 08:50] LABS: Base Excess (BEa) 2.1 mEq/L (-2.0 to +3.0); Calcium, Ionized 0.86 mmol/L (1.12-1.30); Carboxyhemoglobin (COHb) 0.8 gm% (0.0-3.0); Hemoglobin (Hb) 11.6 g/dL (14.0-18.0); O2 Tension (PaO2) 69.9 mmHg (80.0-100.0); Potassium - ABG Lab 3.44 mmol/L (3.70-5.30)
[2018-11-15 08:50] LABS: Puncture Site ALINE
[2018-11-15 08:52] LABS: ALV-art Gradient 539.225 (0-20); CO2 Tension 83.1 mmHg (35.0-45.0); Puncture Site ALINE
--- NOTE | 2018-11-15 11:52 | PRG ---
DATE OF SERVICE: 11/15/2018 SUBJECTIVE: Mr. Gonzalez, 23-year-old man, who committed suicide 2 days previously by hanging. He remains in coma, on full mechanical ventilator support. Yesterday, he had spontaneous respiration, which is the only brainstem function that was present. This morning the patient is evaluated. He has lost all brainstem functions at this point. He remains with no corneal, gag, cough, or oculocephalic reflexes. Urinary output remains adequate for the patient's age. He is currently on no vasopressor or inotropic support. OBJECTIVE: VITAL SIGNS: This morning includes blood pressure 155/69, pulse is 118, respiratory rate is 15, which is the ventilatory setting. Temperature is 98.3 degrees Fahrenheit and the maximum temperature in last 24 hours is 100.4 degrees Fahrenheit. Oxygen saturation is 100% on FiO2 of 45%. HEENT: Pupils are fixed and dilated at 7 mm bilaterally. HEART: Reveals regular rate with sinus tachycardia. No murmurs or gallops auscultated. LUNGS: Clear to auscultation bilaterally. Breathing, regular and nonlabored. ABDOMEN: Soft and nondistended. Liver and spleen remains nonpalpable below costal margin. EXTREMITIES: Reveal 2+ radial and pedal pulses bilaterally. No ankle edema is present. NEUROLOGIC: The patient remains with a [place] Coma Scale of 3. LABORATORY FINDINGS: This morning includes a CBC with 6800 white blood cells, hemoglobin and hematocrit 11.3 and 33.0 respectively. Platelet count is 25,000. Differential counts as follows, 29% segmented neutrophils, 33% bands, 10 lymphocytes, 20 monocytes, and 8 metamyelocytes. Metabolic profile; sodium is 142, potassium is 4.4, chloride is 102, bicarb is 27, BUN is 64, creatinine is 4.70. BUN and creatinine yesterday were 53 and 3.97 respectively. Glucose is 296. AST and ALT improving at 1225 from 1940 respectively. This is in contrast to 3235 and 3121 yesterday. Creatine kinase today is 16,917, down from 19,178 yesterday. Apnea test was performed, and the patient demonstrates no spontaneous respiration in the presence of high pCO2, highly suggestive of brain . IMPRESSIONS: 1. Post injury day #2. 2. Status post suicide by hanging. 3. Acute posttraumatic respiratory failure. 4. Likely brain . PLAN: We will obtain a nuclear medicine brain flow study to confirm brain . Above findings and plan will be discussed with the patient's family once the study is completed. Total critical care time here is 45 minutes. Job ID: [id number]
--- NOTE | 2018-11-15 13:16 | NM ---
NUCLEAR MEDICINE BRAIN EXAMINATION/CEREBRAL BLOOD FLOW STUDY HISTORY: Clinical brain COMPARISON: 11/14/2018 TECHNIQUE: A nuclear medicine cerebral blood flow study was performed after administration of 27 mCi of technetium 99m HMPAO. Angiographic and delayed phase images were performed. FINDINGS: There is lack of intracranial flow on the angiographic and delayed phase images. IMPRESSION: Findings are consistent with brain
[2018-11-15 15:13] VITALS: BP 129/61
--- NOTE | 2018-11-15 15:25 | DIS ---
DATE OF ADMISSION: 11/13/2018 DATE OF DISCHARGE: 11/15/2018 DATE OF : 11/15/2018. ADMITTING DIAGNOSES: 1. Status post suicide by hanging. 2. Status post cardiac arrest. 3. Acute post-traumatic respiratory failure. DISCHARGE DIAGNOSIS: Brain . PROCEDURES PERFORMED: 1. Placement of left subclavian central venous catheter. 2. Placement of right tube thoracostomy. HISTORY AND HOSPITAL COURSE: A 23-year-old man committed suicide by hanging. The patient was cut down after 30 minutes of hang time approximately. He was then noted in asystole. CPR was initiated. Following a prolonged CPR, there was return of spontaneous circulation. The patient was evaluated in the emergency department by Trauma Team. He was admitted following a trauma workup. He has remained with a [place] Coma Scale of 3 the entire time. He had spontaneous respiration, but absent corneal, gag, and cough reflexes on presentation. His pupils had remained fixed and dilated the entire time he had been here. Overnight, the patient had completely lost all brainstem function. This morning, he was evaluated and remained in coma. Pupils remain fixed and dilated. He is on no vasopressor or inotropic support today. Baseline blood gas was obtained prior to initiation of the apnea test, pH of 7.41, pCO2 of 46, pO2 of 218, and oxygen saturation 99%. Apnea test was commenced and after 10 minutes with normal hemodynamics, the pH was 7.20, pCO2 was 83, pO2 was 70, and oxygen saturation was 90. There was no spontaneous respiration noted. The presence of apnea as dictated above suggested brain . Nuclear medicine brain flow study was performed, which was consistent with no blood flow to the brain. The patient is evaluated clinically and found with fixed and dilated pupil at 7 mm, pupils nonreactive, he had absent corneal reflexes. Oculocephalic reflex was absent. Oculovestibular reflex was absent. The patient had no facial movement. No gag and no cough reflexes were noted as well. He was pronounced at 1321 hours of 11/15/2018. Family was at bedside and were informed of the patient's demise. Job ID: [id number]
== END 2018-11-15 13:21 | disposition expired | DRG 922 ==
LOC: ERS 03:43 → EDBD 03:43 → CCU 05:35
PROVIDERS: ADMIT Surgery; ATTEND Surgery
PROC: 5A12012 Performance of Cardiac Output, Single, Manual (ICD-10-PCS; principal; 2018-11-13)
PROC: 0BH17EZ Insertion of Endotracheal Airway into Trachea, Via Natural or Artificial Opening (ICD-10-PCS; 2018-11-13)
PROC: 05H633Z Insertion of Infusion Device into Left Subclavian Vein, Percutaneous Approach (ICD-10-PCS; 2018-11-13)
PROC: 5A1945Z Respiratory Ventilation, 24-96 Consecutive Hours (ICD-10-PCS; 2018-11-13)
PROC: 0W9930Z Drainage of Right Pleural Cavity with Drainage Device, Percutaneous Approach (ICD-10-PCS; 2018-11-13)
PROC: 039Y3ZZ Drainage of Upper Artery, Percutaneous Approach (ICD-10-PCS; 2018-11-13)
DX: T71.162A Asphyxiation due to hanging, intentional self-harm, initial encounter (principal); J96.01 Acute respiratory failure with hypoxia; J96.02 Acute respiratory failure with hypercapnia; J81.0 Acute pulmonary edema; N17.0 Acute kidney failure with tubular necrosis; R40.20 Unspecified coma; E87.4 Mixed disorder of acid-base balance; M62.82 Rhabdomyolysis; E87.2 Acidosis; S10.91XA Abrasion of unspecified part of neck, initial encounter; R40.2432 Glasgow coma scale score 3-8, at arrival to emergency department; E83.51 Hypocalcemia; R73.9 Hyperglycemia, unspecified; X83.8XXA Intentional self-harm by other specified means, initial encounter; R57.0 Cardiogenic shock; K75.89 Other specified inflammatory liver diseases
CPT/HCPCS: 36415; 36416; 51702; 70450; 70498; 71045; 72125; 78610; 80048; 80053; 80076; 80306; 82550; 82805; 83605; 83735; 84100; 84484; 85007; 85025; 85027; 85610; 85730; 92950; 93005; 94002; 94003; 94640; 96361; 96365; 96374; 96375; 96376; 99292; A9521; C9113; G0390; J0171; J1815; J1940; J2001; J2270; J2930; J3010; J3475; J3480; J3490; J7050; J7070; J7611; J7620; P9045; Q9966; S0028

== ENCOUNTER 2018-11-15 13:41 | Inpatient (IN) | payer OTHER ==
[2018-11-15] MEDS ORDERED: Potassium Chloride 20 MEQ in Premix Bag 1 BAG IVPB SCH (15:15)
[2018-11-15] MEDS ORDERED: HUMULIN R 100 UNITS in Sodium Chloride 0.9% 100 ML IVPB SCH (15:15)
[2018-11-15] MEDS ORDERED: Albuterol Sulfate 2.5 mg/3 ml Neb NEB PRN (15:15)
[2018-11-15] MEDS ORDERED: Magnesium 2 GM/50 ML 2 GM in Premix Bag 1 BAG IVPB SCH (15:30)
[2018-11-15] MEDS ORDERED: Calcium Gluconate 9.2 MEQ in Sodium Chloride 0.9% 100 ML IVPB SCH (15:30)
[2018-11-15] MEDS: Phytonadione 10 MG in Sodium Chloride 0.9% 50 ML IVPB SCH ×2 (15:45→19:52)
--- NOTE | 2018-11-15 15:46 | RAD ---
EXAM: Single view of the chest HISTORY: Adult donor with brain COMPARISON: 11/15/2018 FINDINGS: Single view of the chest shows a normal sized cardiomediastinal silhouette. The lines and tubes are unchanged in position. There is no evidence of consolidation, mass, or pleural effusion. The bones are unremarkable. IMPRESSION: Stable exam
[2018-11-15] MEDS: Piperacillin/Tazobactam 3.375 GM in Sodium Chloride 0.9% 100 ML IVPB SCH ×2 (15:49→20:37)
[2018-11-15 15:50] LABS: Actual Bicarbonate (HCO3a) 29.7 mEq/L (22-28); Base Excess (BEa) 4.5 mEq/L (-2.0 to +3.0); CO2 Tension 47.4 mmHg (35.0-45.0); Calcium, Ionized 0.81 mmol/L (1.12-1.30); Carboxyhemoglobin (COHb) 0.5 gm% (0.0-3.0); Hemoglobin (Hb) 10.6 g/dL (14.0-18.0); O2 Tension (PaO2) 428.7 mmHg (80.0-100.0); Potassium - ABG Lab 3.47 mmol/L (3.70-5.30); pH, Arterial 7.42 (7.35-7.45)
[2018-11-15 15:51] LABS: Puncture Site ALINE
[2018-11-15 17:31] LABS: Hemoglobin 10.2 g/dL (14.0-18.0); Hemoglobin A1c 5.5 % (4.0-6.0); INR-International Normal Ratio 1.4; Mean Corpuscular HGB CONC 34.1 g/dL (32.0-36.0); Mean Corpuscular Hemoglobin 31.1 pg (27.0-31.0); Mean Corpuscular Volume 91.1 fL (78.0-98.0); Mean Platelet Volume 11.4 fL (7.4-10.4); Platelet Count 20 thou/uL (130-400); Prothrombin Time 17.5 SEC (12.0-14.7); RBC Distribution Width 13.7 % (11.5-14.5); Red Blood Cell (RBC) Count 3.29 mill/uL (4.70-6.10); White Blood Cell (WBC) Count 7.7 thou/uL (4.8-10.8)
[2018-11-15 17:42] LABS: ALT (SGPT) 1498 U/L (8-55); AST (SGOT) 838 U/L (5-34); Albumin 3.2 g/dL (3.5-5.0); Alkaline Phosphatase 37 U/L (40-150); Anion Gap 18 mmol/L (10-20); BUN (Urea Nitrogen) 72 mg/dL (8.9-20.6); Bilirubin, Direct 2.3 mg/dL (0.1-0.3); Bilirubin, Total 3.3 mg/dL (0.2-1.2); Calc. Creatinine Clearance 0 mL/min (70-130); Calcium 7.2 mg/dL (7.8-10.44); Carbon Dioxide 27 mmol/L (22-29); Chloride 98 mmol/L (98-107); Estimated GFR-MDRD 13; Gamma GT (GGT) 104 U/L (12-64); Globulin 1.4 g/dL (2.4-3.5); Glucose 246 mg/dL (70-105); Lipase 38 U/L (8-78); Magnesium 2.5 mg/dL (1.6-2.6); Phosphorus 4.3 mg/dL (2.3-4.7); Potassium 3.8 mmol/L (3.5-5.1); Protein, Total 4.6 g/dL (6.0-8.3); Sodium 139 mmol/L (136-145)
[2018-11-15 17:47] LABS: ALT (SGPT) 1467 U/L (8-55); AST (SGOT) 831 U/L (5-34); Albumin 3.1 g/dL (3.5-5.0); Alkaline Phosphatase 36 U/L (40-150); Anion Gap 19 mmol/L (10-20); BUN (Urea Nitrogen) 71 mg/dL (8.9-20.6); Bilirubin, Direct 2.2 mg/dL (0.1-0.3); Bilirubin, Total 3.3 mg/dL (0.2-1.2); Calc. Creatinine Clearance 0 mL/min (70-130); Carbon Dioxide 27 mmol/L (22-29); Chloride 99 mmol/L (98-107); Estimated GFR-MDRD 13; Globulin 1.5 g/dL (2.4-3.5); Glucose 239 mg/dL (70-105); Lipase 39 U/L (8-78); Magnesium 2.5 mg/dL (1.6-2.6); Phosphorus 4.3 mg/dL (2.3-4.7); Potassium 3.8 mmol/L (3.5-5.1); Protein, Total 4.6 g/dL (6.0-8.3); Sodium 141 mmol/L (136-145)
[2018-11-15 17:49] LABS: Band 33 % (5-11); Lymphocytes 10 % (21-51); MDiff Complete? YES; Metamyelocyte 3 % (0-0); Monocytes 4 % (0-10); Neutrophil 50 % (42-75); Platelet Morphology Comment Appears Decreased
[2018-11-15 17:51] LABS: CKMB 47.2 ng/mL (0-6.6); Troponin I 0.722 ng/mL (< 0.028)
[2018-11-15 17:56] LABS: CKMB 47.8 ng/mL (0-6.6); Troponin I 0.729 ng/mL (< 0.028)
[2018-11-15 18:08] LABS: CK (CPK) 17850 U/L (30-200)
[2018-11-15 18:12] LABS: CK (CPK) 17934 U/L (30-200)
[2018-11-15] MEDS: Albuterol Sulfate 2.5 mg/3 ml Neb NEB SCH ×2 (18:35→22:22)
[2018-11-15] MEDS ORDERED: Sodium Chloride 0.45% 1,000 ML IV SCH (18:45)
[2018-11-15 18:49] LABS: Bilirubin Negative (Negative); Blood, Urine 3+ (Negative); Clarity Turbid (Clear); Glucose, Urine (Dipstick) 100 mg/dL (Negative); Leukocyte Negative Leu/uL (Negative); Nitrite Negative (Negative); Protein, Urine (Dipstick) 100 mg/dL (Neg-Trace); RBC/HPF Greater than 50 HPF (0-3); Squamous Epithelial 0-3 HPF (0-3); Urobilinogen Normal mg/dL (Less than 2)
[2018-11-15 18:55] LABS: Bacteria/HPF None Seen HPF (None Seen); Renal Epithelial 0-3 HPF (None Seen)
[2018-11-15] MEDS ORDERED: Furosemide 20 MG/2 ML VIAL SLOW IVP SCH (19:45)
[2018-11-15] MEDS ORDERED: Bumetanide 1 MG/4 ML VIAL IVP SCH (21:00)
[2018-11-15 21:25] LABS: Bilirubin Negative (Negative); Blood, Urine 3+ (Negative); Clarity Turbid (Clear); Glucose, Urine (Dipstick) 50 mg/dL (Negative); Leukocyte Negative Leu/uL (Negative); Nitrite Negative (Negative); Protein, Urine (Dipstick) 70 mg/dL (Neg-Trace); Squamous Epithelial 0-3 HPF (0-3); Urobilinogen Normal mg/dL (Less than 2)
[2018-11-15 21:29] LABS: INR-International Normal Ratio 1.3; PTT 28.7 SEC (22.9-36.1); Prothrombin Time 15.8 SEC (12.0-14.7)
[2018-11-15 21:29] LABS: Actual Bicarbonate (HCO3a) 27.5 mEq/L (22-28); Base Excess (BEa) 2.4 mEq/L (-2.0 to +3.0); Calcium, Ionized 0.88 mmol/L (1.12-1.30); Carboxyhemoglobin (COHb) 0.2 gm% (0.0-3.0); Hemoglobin (Hb) 9.5 g/dL (14.0-18.0); O2 Tension (PaO2) 406.6 mmHg (80.0-100.0); Potassium - ABG Lab 3.35 mmol/L (3.70-5.30)
[2018-11-15 21:30] LABS: Bacteria/HPF Rare-Few HPF (None Seen); Renal Epithelial 0-3 HPF (None Seen); Yeast-Budding None Seen HPF (None Seen)
[2018-11-15 21:31] LABS: Puncture Site ALINE
[2018-11-15] MEDS ORDERED: Bumetanide 1 MG/4 ML VIAL IVP PRN (21:37)
[2018-11-15 21:41] LABS: Band 24 % (5-11); Hemoglobin 9.5 g/dL (14.0-18.0); Hypochromia SLIGHT = 6-15 cells (100X) (0-5/hpf); Lymphocytes 9 % (21-51); MDiff Complete? YES; Mean Corpuscular HGB CONC 35.1 g/dL (32.0-36.0); Mean Corpuscular Hemoglobin 31.8 pg (27.0-31.0); Mean Corpuscular Volume 90.6 fL (78.0-98.0); Mean Platelet Volume 8.7 fL (7.4-10.4); Monocytes 19 % (0-10); Neutrophil 48 % (42-75); Platelet Count 62 thou/uL (130-400); Platelet Morphology Comment Appears Decreased; RBC Distribution Width 13.6 % (11.5-14.5); Red Blood Cell (RBC) Count 2.98 mill/uL (4.70-6.10); White Blood Cell (WBC) Count 8.2 thou/uL (4.8-10.8)
[2018-11-15 21:55] LABS: ALT (SGPT) 1273 U/L (8-55); AST (SGOT) 747 U/L (5-34); Albumin 3.4 g/dL (3.5-5.0); Alkaline Phosphatase 40 U/L (40-150); Anion Gap 19 mmol/L (10-20); BUN (Urea Nitrogen) 74 mg/dL (8.9-20.6); Bilirubin, Direct 2.5 mg/dL (0.1-0.3); Bilirubin, Total 3.8 mg/dL (0.2-1.2); Calc. Creatinine Clearance 0 mL/min (70-130); Calcium 7.1 mg/dL (7.8-10.44); Carbon Dioxide 27 mmol/L (22-29); Chloride 99 mmol/L (98-107); Estimated GFR-MDRD 13; Globulin 1.6 g/dL (2.4-3.5); Glucose 114 mg/dL (70-105); Lipase 61 U/L (8-78); Magnesium 2.3 mg/dL (1.6-2.6); Phosphorus 3.2 mg/dL (2.3-4.7); Potassium 3.3 mmol/L (3.5-5.1); Sodium 142 mmol/L (136-145)
[2018-11-15 21:56] LABS: Troponin I 0.808 ng/mL (< 0.028)
[2018-11-15] MEDS ORDERED: Furosemide 20 MG/2 ML VIAL SLOW IVP PRN (22:00)
[2018-11-15] MEDS ORDERED: Potassium Chloride 40 MEQ in Premix Bag 1 BAG IVPB SCH (22:15)
[2018-11-15 22:20] LABS: CK (CPK) 19049 U/L (30-200)
[2018-11-15] MEDS ORDERED: Furosemide 100 MG/10 ML VIAL SLOW IVP SCH (22:30)
[2018-11-15] MEDS ORDERED: Calcium Gluconate 4.6 MEQ in Sodium Chloride 0.9% 100 ML IVPB SCH (22:45)
[2018-11-15 23:02] VITALS: TEMP 99
== END 2018-11-16 00:15 | disposition short-term general hospital (02) | DRG 951 ==
LOC: SDC 13:41 → CCU 13:45
PROVIDERS: ADMIT Surgery; ATTEND Surgery
DX: Z52.9 Donor of unspecified organ or tissue (principal)
CPT/HCPCS: 36416; 36430; 71045; 81001; 82150; 82248; 82553; 82805; 82977; 83036; 83690; 83735; 84100; 84484; 85384; 85610; 85730; 86850; 86900; 86901; J1815; J1940; J2543; J3430; J3475; J3480; J3490; P9035; P9045